=== PATIENT | female | born 1970 | race Caucasian/White ===

== ENCOUNTER 2018-08-22 07:54 | Day surgery (SDC) | payer OTHER, SELFPAY ==
--- NOTE | 2018-08-22 06:43 | W.COLOREPORT ---
Date of service: 08/22/18 Time of Service: :23 Colonoscopy Report Date of procedure: 08/22/18 Pre-op diagnosis general: Screening Post-op diagnosis procedure note: other (ascending polyp) Procedure: Colonoscopy with polypectomy by cold forceps Surgeon: Dee Irvin Anesthesia proc note operative: MAC (Nighat cosme CRNA) Estimated blood loss (mL): 5 Pathology: other (ascending polyp) Complications: None Disposition: same day Indications: Mrs. Parker is a 48-year-old female who was seen in the office for her first screening colonoscopy. Risks, benefits, complications were reviewed with her and she wished to proceed. No guarantees were given or implied. Prep: Miralax/Dulcolax Procedure Start Time: 08:51 Procedure End Time: :19 Retraction Time: 19 minutes Findings: One very small polyp in the ascending colon Procedure Description: After informed consent was obtained the patient was taken to the procedure room and placed in a left decubitous position. Monitors were applied and a time out was done. The patients name, date of , procedure, allergies to medications and metal in their body was reviewed. The patient was then sedated. Once sedated and comfortable a rectal exam was done. External exam was normal. Internal exam revealed a normal sphincter tone and no palpable masses. The scope was then introduced and retroflexed. No internal hemorrhoids were identified. The scope was then advanced to the cecum without difficulty. The TI and appendiceal orifice were identified. The prep was adequate. The scope was then slowly retracted over 19 minutes back into the rectum. One small sessile polyp was removed in the ascending colon with cold forceps. The scope was removed and the patient was woken up and taken back to Same day surgery in stable condition. The patient tolerated the procedure well and there were no immediate complications. Follow up: The patient should follow up in 3-5 years unless they develop changes in bowel habits or other new gastrointestinal complaints.
--- NOTE | 2018-08-22 06:48 | PDOC.DSDIS_ITS ---
Discharge Plan Disposition Patient Disposition: HOME Condition: Good Discharge Details Reason For Visit: SCREENING Attending Provider: Dee Irvin Primary Care Provider: Jeannine Cha Home Meds and New Rx's Prescriptions: Continue ibuprofen 200 mg Tablet 400 mg RF: 0 Discharge Instructions Instructions: Colonoscopy (DC), Colorectal Polyps (DC) Additional Instructions: Findings: One very small polyp Follow up: depends on final pathology Please call if you develop: fevers >101.5 Nausea or Vomiting Abdominal pain that isn't transient DAY SURGERY UNIT POST COLONOSCOPY INSTRUCTIONS 1. Because there will be medication in your system for the next 24 hours, you may feel a little sleepy. Your coordination will be affected. Therefore: a. Do not drive or operate dangerous equipment for 24 hours. b. Do not drink alcohol beverages for 24 hours (not even beer). c. Plan to go home and rest for the day. 2. Generally there are no restrictions on your activity after a day or so has gone by, but you may feel a bit fatigued for a few days. 3 After you arrive home you may have a light meal and return to a normal diet as you can tolerate it without feeling sick to your stomach. 4. After surgery, you may feel pain or discomfort. This should be only transient , but if it persists please contact your doctor. 5. If there are any questions regarding the findings of your procedure, please feel free to contact your doctor. 6. If you are unable to contact your doctor with a problem, contact the hospital at [phone]. 7. Continue all your regular medications unless directed otherwise. I understand the above instructions and have no questions. Signature of Patient or Responsible Adult Escort Date/Time Name of Responsible Adult Escort Signature of Nurse Date/Time Activity:: Activity as Tolerated Diet:: As Tolerated Discharge Orders Discharge Orders: Discharge Order (Routine); Ordered 08/22/18 Ordered By: Dee Irvin DS: Diagnosis Discharge Diagnosis (1) S/P colonoscopy: Status: Acute (2) Colorectal polyp detected on colonoscopy: Status: Acute
[2018-08-22 08:10] VITALS: BP 113/73; PULSE 74; RESP 16; TEMP 36.7; O2SAT 100
[2018-08-22] MEDS: Lactated Ringers 1,000 ML 80 ML IV (08:25)
--- NOTE | 2018-08-22 09:03 | BOWEL_PTH ---
PATIENT: BALDEMAR EUGENE LOC: [facility] U#:[id number] AGE/SX: 48/F ROOM: RE08/22/[address]: Dee Irvin MD : 1970 BED: DIS: 08/22/2018 SPEC #: [id number] RECD: 08/22/18 12:44 STATUS: GORDO REQ #: [id number] SALIMA: 08/22/18 09:[address]: Dee Irvin DEPT: Surgical Specimen RECD BY: Selena Kruse ENTERED: 08/22/18 12:45 SP TYPE: Bowel OTHR DR: BRIGITTE Colon Tissues: 1 - BIOPSY BOWEL Procedures: GROSS AND MICRO LEVEL 4 Comments: [id number]
[2018-08-22 09:29] VITALS: BP 101/68; PULSE 68; RESP 20; TEMP 36.7; O2SAT 99
[2018-08-22 09:34] VITALS: BP 110/68; PULSE 64; RESP 13; TEMP 36.7; O2SAT 100
[2018-08-22 09:39] VITALS: BP 107/68; PULSE 61; RESP 15; TEMP 36.6; O2SAT 100
[2018-08-22 10:15] VITALS: BP 121/78; PULSE 62; RESP 14; TEMP 35.9; O2SAT 100
== END 2018-08-22 10:33 | disposition home or self-care (01) ==
LOC: SUR 07:55
PROVIDERS: PCP Nurse Practitioner Family; Visit Provider Surgery
PROC: 0DJD8ZZ Inspection of Lower Intestinal Tract, Via Natural or Artificial Opening Endoscopic (ICD-10-PCS; CPT 45378; principal; 2018-08-22 08:45)
DX: Z12.11 Encounter for screening for malignant neoplasm of colon (principal); D12.2 Benign neoplasm of ascending colon
CPT/HCPCS: 45380; 88305

== ENCOUNTER 2019-04-23 12:13 | Outpatient (CLI) | payer OTHER, SELFPAY ==
--- NOTE | 2019-04-23 12:13 | DI.MAMMO_ITS ---
SYMPTOMS/DIAGNOSIS: SCREENING, Z12.31 MAMMOGRAM: Mammograms were interpreted according to the usual protocol including computer analysis with CAD system, tomosynthesis and C view imaging. The breast tissue is heterogeneously radiodense which lowers the sensitivity of the study. There is no dominant mass. There are no suspicious calcifications, and there has been no significant interval change when compared with prior images. SUMMARY: No evidence of malignancy, Category I, annual screening mammography is recommended. Breast density Category C. SA ASSESSMENT OF FINDINGS: Negative. Category 1. Patient will receive a letter notifying them of these results. Bi-RADS category C. The breasts are heterogeneously dense, which may obscure small masses.
== END 2019-04-23 12:33 ==
PROVIDERS: PCP Nurse Practitioner Family; Visit Provider Nurse Practitioner Family
DX: Z12.31 Encounter for screening mammogram for malignant neoplasm of breast (principal)
CPT/HCPCS: 77063; 77067

== ENCOUNTER 2019-12-23 12:19 | Outpatient (REF) | payer OTHER, SELFPAY ==
--- NOTE | 2019-12-23 09:50 | SKI_PTH ---
PATIENT: BALDEMAR EUGENE LOC: [facility] U#:[id number] AGE/SX: 49/F ROOM: RE12/23/[address]: Dee Irvin MD : 1970 BED: DIS: 12/23/2019 SPEC #: [id number] RECD: 12/23/19 12:39 STATUS: GORDO REQ #: [id number] SALIMA: 12/23/19 09:[address]: Dee Irvin DEPT: Surgical Specimen RECD BY: Selena Kruse ENTERED: 12/23/19 12:40 SP TYPE: JODIE DOMINGUEZ DR: BRIGITTE Colon Tissues: 1 - SKIN BIOPSY(SHAVE/PUNCH) Procedures: SKIN LEVEL 4 Comments: [id number]
== END 2019-12-23 12:39 ==
LOC: LBN 12:19
PROVIDERS: PCP Nurse Practitioner Family; Visit Provider Surgery
DX: D22.62 Melanocytic nevi of left upper limb, including shoulder (principal)
CPT/HCPCS: 88305

== ENCOUNTER 2020-03-10 02:31 | Outpatient (CLI) | payer OTHER, SELFPAY ==
[2020-03-10 07:39] LABS: Hemoglobin A1C 5.8 % (3.8-5.6)
[2020-03-10 08:40] LABS: BUN 16 mg/dL (7-18); CREATININE 0.78 mg/dL (0.55-1.02); Calcium 9.2 mg/dL (8.5-10.1); Calculated LDL 115 mg/dL (<100); Chloride 103 mmol/L (98-107); Cholesterol 232 mg/dL (<200); Glucose 88 mg/dL (74-106); HDL Cholesterol 95 mg/dL (40-60); Sodium 139 mmol/L (136-145); Triglyceride 112 mg/dL (<150)
[2020-03-10 15:05] LABS: Abs Immature Grans 0.01 k/cumm (0.0-0.09); Absolute Basophil Count 0.02 k/cumm (0.0-0.2); Absolute Eosinophil Count 0.17 k/cumm (0.0-0.7); Absolute Lymphocyte Count 2.23 k/cumm (1.2-3.4); Absolute Monocyte Count 0.47 k/cumm (0.11-0.7); Absolute Neutrophil Count 1.45 k/cumm (1.2-6.7); Basophils % 0.5; Eosinophils % 3.9; HCT 39.7 % (36.0-46.0); HGB 12.9 g/dL (12.0-15.5); Immature Grans % 0.2 %; Lymphocytes % 51.3; Mean Corp. HGB Concentration 32.5 g/dL (32.0-36.0); Mean Corpuscular Hemoglobin 30.6 pg (27.0-33.0); Mean Corpuscular Volume 94.3 fL (80-95); Monocytes % 10.8; Neutrophils % 33.3; Platelet Count 285 x1000/uL (130-400); RBC 4.21 m/cumm (4.00-5.20); RBC Distribution Width 13.2 % (11.7-14.6); White Blood Cell Count 4.35 k/cumm (4.4-10.8)
[2020-03-10 16:02] LABS: Diff Comment Agrees w/ Instrument
[2020-03-10 16:03] LABS: Poikilocytes 1+
[2020-03-11 05:08] LABS: Vitamin D 25 Total 53.9 ng/ml (30-100)
== END 2020-03-10 02:51 ==
PROVIDERS: Family Medicine; PCP Nurse Practitioner Family; Visit Provider Nurse Practitioner Family
DX: D50.9 Iron deficiency anemia, unspecified (principal); E78.5 Hyperlipidemia, unspecified; E55.9 Vitamin D deficiency, unspecified
CPT/HCPCS: 36415; 80048; 80061; 82306; 83036; 85025